=== PATIENT | male | born 1975 | race Caucasian/White ===

== ENCOUNTER 2021-02-25 11:24 | Outpatient (CLI) | payer OTHER, SELFPAY ==
--- NOTE | ~2021-02-25 | XR_ITS ---
XR ankle LT min 3V DATE: 02/25/2021 11:56 INDICATION: Left ankle pain for 6 months. No injury. TECHNIQUE: 4 views COMPARISON: None FINDINGS: No soft tissue swelling is noted. No fracture or dislocation of the ankle or disruption of the ankle mortise, periosteal reaction or bone destruction is detected. IMPRESSION: Negative Reviewed, dictated and finalized at location B. RVISOR RECORDS CHANGE IMPRESSION: Negative
--- NOTE | ~2021-02-25 | XR_ITS ---
XR shoulder RT min 2V DATE: 02/25/2021 11:56 INDICATION: Right shoulder pain for 2 months. No injury. TECHNIQUE: 4 views COMPARISON: None FINDINGS: No fracture or dislocation, periosteal reaction or bone destruction or abnormal soft tissue calcification of the right shoulder. IMPRESSION: Negative Reviewed, dictated and finalized at location B. TICE MANAGERS IMPRESSION: Negative
== END 2021-02-25 11:25 | disposition home or self-care (01) ==
LOC: CHSIMG 11:28
PROVIDERS: PCP Internal Medicine; Visit Provider Internal Medicine
DX: M25.511 Pain in right shoulder (principal); M25.572 Pain in left ankle and joints of left foot
CPT/HCPCS: 73030; 73610

== ENCOUNTER 2024-05-10 13:10 | Emergency (ER) | payer OTHER, SELFPAY ==
--- NOTE | ~2024-05-10 | US_ITS ---
EXAMINATION: US scrotum doppler DATE: 05/10/2024 14:37 INDICATION: Scrotal pain and swelling TECHNIQUE: Testicular sonogram utilizing grayscale and Doppler COMPARISON: None. FINDINGS: The right testis measures 4.1 x 3.5 x 2.7 cm. The left testis measures 4.5 x 3.8 x 2.4 cm. Symmetric normal grayscale appearance to both testes. Asymmetric mild increased vascular flow in the right test is relative to the left on color Doppler. Asymmetric swelling of the right epididymis with more promi nent asymmetrically increased vascular flow on color Doppler consistent with epididymitis. The left e pididymis is normal with normal vascular flow. There is a moderate-sized left hydrocele. There is no varicocele. There is asymmetric swelling at the right hemiscrotum relative to the left. IMPRESSION: 1. Asymmetric hyperemia to the right testis and epididymis consistent with epididymoorchitis. 2. Likely secondary reactive right-sided scrotal edema and moderate-sized right hydrocele. Reviewed, dictated and finalized at location L. ER HUMAN RESOURCES MANAGER IMPRESSION: 1. Asymmetric hyperemia to the right testis and epididymis consistent with epi didymoorchitis. 2. Likely secondary reactive right-sided scrotal edema and moderate-sized right hydrocele.
[2024-05-10 13:46] VITALS: BP 142/118; PULSE 97; RESP 16; TEMP 37.3; O2SAT 99
--- OUTSIDE RECORDS SUMMARY | 2024-05-10 14:27 | XMS_ITS | Clinical Summary ---
Author Organization [facility] Address [address] [place] [address] Care Team Providers Care Scouts Name Role Phone Alexandra Deluna NP Primary Care Provider [phone] Allergies No known active allergies Medications losartan (COZAAR) 50 mg tablet Take 1 tablet (50 mg total) by mouth daily 10/17/2023 Active meloxicam (MOBIC) 15 mg tabletIndication s:Left shoulder pain, unspecified chronicity,Super ior glenoid labrum lesion of left shoulder, initial encounter,Imping ement syndrome of left shoulder Take 1 tablet (15 mg total) by mouth daily 30 tablet 1 10/26/2023 Active Active Problems Problem Noted Date Diagnosed Date Positive colorectal cancer screening using Colog uard test 02/07/2023 Encounter for screening colonoscopy 02/07/2023 Class 1 obesity without seri ous comorbidity with body mass index (BMI) of 34.0 to 34.9 in adult 11/14/2022 Assessment & Plan (11/14/2022 8:53 AM CDT): Chronic problem-new patient Unable to classify stability Encouraged to follow heart healthy diet-low fat, low carb, low chol, low sonja Encouraged to increase activity to 30 min/week, 150 min/week Continue to monitor BMI not at/near goal <30 Fever blister 11/14/2022 Assessment & Plan (11/14/2022 8:58 AM CDT): Chronic problem-stable Ordered acyclovir 400 mg-take 1 tablet five times daily for 10 days at first sign of breakout Will plan to order suppressive therapy dosing if needed for recurrent outbreaks Continue to monitor Encounter for medical examination to establish c are 11/12/2022 Assessment & Plan (11/14/2022 8:58 AM CDT): Recommend flu vaccine every December, tetanus booster every 10 years-next due 2030, recommend covid booster Fasting labs ordered Follow up in 1 year for annual-sooner prn Ordered Cologuard for colon cancer screening Chronic alcohol use 06/01/2021 Assessment & Plan (11/14/2022 8:55 AM CDT): Chronic problem-stable Encouraged to decrease etoh use- recommend 1 to 2 drinks nightly and slowly wean self off etoh-increased risk of health with continued use discussed MARIANA (obstructive sleep apnea) 03/25/2021 Overview (03/25/2021): Added automatically from request for surgery [id number] Assessment & Plan (11/14/2022 8:48 AM CDT): Chronic problem-stable Continue with autopap at current settings Compliant with autopap nighty with symptomatic relief Follow up with sleep medicine as scheduled-Dr. Prado Multiple-type hyperlipidemia 07/21/2013 Overview (06/10/2016): MIXED HYPERLIPIDEMIA Assessment & Plan (11/14/2022 8:49 AM CDT): Chronic problem- no current lab results to review Unable to classify stability due to no lab values Fasting labs ordered- lipids Continue to monitor Recommend healthy diet-low fat, low carb, low chol Tobacco dependence syndrome 07/21/2013 Overview (06/10/2016): TOBACCO USE DISORDER Cobalamin deficiency 07/21/2013 Overview (06/11/2016): Vitamin B12 deficiency Assessment & Plan (11/14/2022 8:52 AM CDT): Chronic problem- no current lab values Unable to classify stability due to no recent lab values Labs ordered- B12, folate Will plan to order B12 and folic acid pending results Encounters Date Type Department Care Team Description 05/10/2024 12:30 PM DEPUTY ATTORNEY GENERAL Office Visit [facility] Medical Group [facility] Care at [address] [address] Belen Vazquez NP Testicular swelling, right (Primary Dx); Testicular pain, right from Last 3 Months Immunizations Immunization Administration Dates Next Due Tdap 02/25/2021,05/11/2011 Surgical History Surgery Date Site/Laterality Comments VASECTOMY 03/07/2009 - 03/06/2010 Vasectomy FRACTURE SURGERY Right hand fracture HERNIA REPAIR no hernia Medical History Medical History Date Comments Sleep apnea Carpal tunnel syndrome H/O Family History Medical History Relation Name Comments Early Father Heart attack Father [place] Hypertension Father Hypertension Mother Hypertension; Relation Name Status Comments Father (Age 53) Mother Alive Social History Tobacco Use Types Packs/Day Years Used Date Smoking Tobacco: Former Cigarettes Q uit: 2019 Smokeless Tobacco: Never Tobacco Cessation:Counseling Given: Not Answered Alcohol Use Standard Drinks/Week Comments Yes 0 (1 standard drink = 0.6 oz pur e alcohol) AUDIT-C Answer Date Recorded Q1: How often do you have a drink containing alc ohol? 2-3 times a week 03/18/2023 Q2: How many drinks containi ng alcohol do you have on a typical day when you are drinking? 1 or 2 03/18/2023 Q3: How often do you have si x or more drinks on one occasion? Never 03/18/2023 PHQ-2 Answer Date Recorded PHQ-2 Total Score (If total score is 3 or more points, staff should administer the PHQ-9) 0 11/12/2022 Personal Safety Answer Date Recorded Have you ever been in or are you currently in a harmful physical or emotional relationship or is someone making you feel afraid or unsafe? Denies 03/21/2023 Sex and Gender Information Value Date Recorded Sex Assigned at Not on file Legal Sex Male 10:05 AM DEPUTY ATTORNEY GENERAL Gender Identity Not on file Sexual Orientation Not on file Obstetrics History Last Filed Vital Signs Vital Sign Reading Time Taken Comments Blood Pressure 170/86 05/10/2024 12:45 PM DEPUTY ATTORNEY GENERAL Pulse 95 05/10/2024 12:45 PM DEPUTY ATTORNEY GENERAL Temperature 37.4 C (99.4 F) 05/10/2024 12:45 PM DEPUTY ATTORNEY GENERAL Respiratory Rate 20 05/10/2024 12:45 PM DEPUTY ATTORNEY GENERAL Oxygen Saturation 99% 05/10/2024 12:45 PM DEPUTY ATTORNEY GENERAL Inhaled Oxygen Concentration - - Weight 112 kg (246 lb 14.4 oz) 05/10/2024 12:45 PM DEPUTY ATTORNEY GENERAL Height 184.2 cm (6' 0.5 ) 10/26/2023 2:23 PM CDT Body Mass Index 33.03 10/26/2023 2:23 PM CDT Plan of Treatment Health Maintenance Due Date Last Done Comments Hepatitis B Screening 1993 Covid-19 Vaccine (3 - 2023-2 5 season) 2023 08/01/2020, 07/11/2020 Influenza Vaccine (#1) 2023 Depression Screening 11/13/2023 11/12/2022 Regular Well Visit/Exam 18-64 11/13/2023, 11/12/2022 DTaP/Tdap/Td Vaccine (3 - Td or Tdap) 02/25/2031 02/25/2021, 05/11/2011 Colon Cancer Screening-Colonoscopy 03/21/2033 03/21/2023 Hepatitis C Screening Completed 11/22/2022 Pneumococcal vaccine <65 Aged Out No longer eligible based on patient's age to complete this topic Procedures Procedure Name Priority Date/Time Associated Diagnosis Comments COLONOSCOPY 03/21/2023 7:33 AM DEPUTY ATTORNEY GENERAL HEPATITIS PANEL, ACUTE Routine 11/22/2022 12:44 PM CDT Cobalamin deficiency Chronic alcohol use Encounter for medical examination to establish care Multiple-type hyperlipidemia from Last 3 Months or Most Recently Relevant to Health Maintenance Results * COLONOSCOPY (03/21/2023 7:33 AM DEPUTY ATTORNEY GENERAL) Anatomical Region Laterality Modality Other Narrative Procedure Note Jose Antonio Mendosa MD - 03/21/2023 7:[address] [facility] Patient Name: Owen Douglas Procedure Date: 03/21/2023 7:33 AM Date of : 1975 Admit Type: Outpatient Age: 47 Gender: Male Attending MD: Jose Antonio Mendosa M.D. Room: [facility] ENDOSCOPY ROOM 2 Note Status: Finalized Patient Profile: Refer to note in patient chart for documentation of history and physical. Procedure: Colonoscopy Indications: This is the patient's first colonoscopy, Positive Cologuard test Referring MD: Charito Mcgarry.NClaudinePClaudine Providers: Jose Antonio Mendosa M.D. Impression: - The entire examined colon is normal. - No specimens collected. Recommendation: - Discharge patient to home. - Resume previous diet. - Continue present medications. - Repeat colonoscopy in 10 years for screening purposes. - Return to primary care physician as previously scheduled. Medicines: Propofol per Anesthesia Complications: No immediate complications. Estimated Blood Loss: Estimated blood loss: none. Procedure: Pre-Anesthesia Assessment: - This assessment was completed [Time ofAssessment] prior to the administration of sedation. The benefits, risks and alternatives of theprocedure and sedation were discussed and informed consentwas obtained. All questions were answered. Please referto the signed informed consent document in the medical record. The bowel preparation used was Miralax and bisacodyl tablets via single dose instruction. The scope was passed under direct vision. TheColonoscope [id number] was introduced through the anus and advanced to the the cecum, identified by appendiceal orifice and ileocecal valve. The colonoscopy was performed without difficulty. The patient tolerated the procedure well. The qualityof the bowel preparation was excellent. The ileocecal valve, appendiceal orifice, and rectum were photographed. Findings: The perianal and digital rectal examinations were normal. The colon (entire examined portion) appeared normal. Electronically signed by Jose Antonio Mendosa M.D. Jose Antonio Mendosa M.D. 03/21/2023 8:35:38 AM Number of Addenda: 0 Note Initiated On: 03/21/2023 7:33 AM Procedure Code(s): --- Professional --- 46646, Colonoscopy, flexible; diagnostic, including collection of specimen(s) by brushing or washing, when performed (separateprocedure) --- Technical --- 71558, Colonoscopy, flexible; diagnostic, including collection of specimen(s) by brushing or washing, when performed (separateprocedure) Diagnosis Code(s): --- Professional --- R19.5, Other fecal abnormalities --- Technical --- R19.5, Other fecal abnormalities CPT copyright 2020 [employer]. All rights reserved. The codes documented in this report are preliminary and upon rehabilitation counselor reviewmay be revised to meet current compliance requirements. Recognized by the [employer] for promoting quality in endoscopy us Jose Antonio Mendosa MD ENDOSCOPY PROCEDURES Final Re sult * Hepatitis panel, acute Blood (11/22/2022 12:44 PM CDT) Hep A IgM Nonreactive Nonreactive Comment: Interpretive Data: If Hep A IgM Ab is reported as Equivocal, a new sample should be drawn in two weeks for testing. Current interpretive data was last revised on 19. Testing performed by: [facility], [address] [place] [address], [place]., [address] Hep B core IgM Nonreactive Nonreactive C [facility] (RICHIE) Comment: Interpretive Data If HepB Core IgM Ab is reported as Equivocal, a new sample should be drawn in two weeks for testing. Current interpretive data was last revised on 19. Testing performed by: [address] [address] Hep C Ab Nonreactive Nonreactive JONATHAN [facility] (RICHIE) Comment: Interpretive Data Nonreactive: Antibodies to HCV not detected. Does NOT exclude the possibility of recent exposure to HCV. Equivocal: Equivocal for HCV antibodies. Supplemental molecular testing will be automatically performed to determine infection status in accordance with current CDC screening recommendations. Reactive: Positive for HCV antibodies. This may represent current or past HCV infection. Supplemental molecular testing will be automatically performed to determine current infection status in accordance with current CDC screening recommendations. Interpretive data was last revised on 2019. Testing performed by: [facility], [address] [place] [address]., [address] HepBsAg Nonreactive Nonreactive JONATHAN [facility] (RICHIE) Comment:Testing performed by : [address] [address] Blood 11/22/2022 12:4 4 PM CDT 11/22/2022 4:50 PM CDT Alexandra Deluna NP LAB MICROBIOLOGY - GENERAL ORD ERABLES Final Result JONATHAN [facility] (RICHIE) 1 [facility] Department [place] [address] from Last 3 Months or Most Recently Relevant to Health Maintenance Insurance [facility] [employer] SIGNATURE Advance Directives For more information, please contact: [phone] * Full Code (Latest Code Status on File) Date Activated Date Inactivated Comments 03/21/2023 7:37 AM 03/21/2023 1:20 PM * Full Code Date Activated Date Inactivated Comments 03/21/2023 7:37 AM 03/21/2023 7:37 AM Care Teams Scouts Relationship Specialty Start Date End Date Alexandra Deluna NP PCP - General Nurse Practitioner 11/12/22
--- OUTSIDE RECORDS SUMMARY | 2024-05-10 14:27 | XMS_ITS | Encounter Summary ---
Author Organization [facility] Healthcare Address [address] [place] [address] Care Team Providers Care Library Media Technician Name Role Phone Alexandra Deluna NP Primary Care Provider [phone] Reason for Visit * Reason Comments Other Swollen testicle. St arted a week ago and pain. IBU not helping. No issues with urination. - Entered by patient Encounter Details Date Type Department Care Team (Late st Contact Info) Description 05/10/2024 12:30 PM GRANULATOR MACHINE OPERATOR Office Visit [facility] Medical Group Convenient Care at [address] [address] Belen Vazquez NP [address] [place] [address] [address] [place] [address] Testicular swelling, right (Primary Dx); Testicular pain, right Social History Tobacco Use Types Packs/Day Years Used Date Smoking Tobacco: Former Cigarettes Q uit: 2019 Smokeless Tobacco: Never Alcohol Use Standard Drinks/Week Comments Yes 0 [...] on file Legal Sex Male 10:05 AM GRANULATOR MACHINE OPERATOR Gender Identity Not on file Sexual Orientation Not on file documented as of this encounter Last Filed Vital Signs Vital Sign Reading Time Taken Comments Blood Pressure 170/86 05/10/2024 12:45 PM GRANULATOR MACHINE OPERATOR Pulse 95 05/10/2024 12:45 PM GRANULATOR MACHINE OPERATOR Temperature 37.4 C (99.4 F) 05/10/2024 12:45 PM GRANULATOR MACHINE OPERATOR Respiratory Rate 20 05/10/2024 12:45 PM GRANULATOR MACHINE OPERATOR Oxygen Saturation 99% 05/10/2024 12:45 PM GRANULATOR MACHINE OPERATOR Inhaled Oxygen Concentration - - Weight 112 kg (246 lb 14.4 oz) 05/10/2024 12:45 PM GRANULATOR MACHINE OPERATOR Height - - Body Mass Index 33.03 10/26/2023 2:23 PM CDT documented in this encounter Plan of Treatment Not on file documented as of this encounter Visit Diagnoses Diagnosis Testicular swelling, right- Primary Edema of male genital organs Testicular pain, right Unspecified disorder of male genital organs documented in this encounter Care Teams Library Media Technician Relationship Specialty Start Date End Date Alexandra Deluna NP PCP - General Nurse Practitioner 11/12/22 documented as of this encounter
--- OUTSIDE RECORDS SUMMARY | 2024-05-10 14:27 | XMS_ITS | Referral Summary ---
Author Organization [facility] Address [address] [place] [address] Care Team Providers Care Phlebotomy Support Tech Name Role Phone Alexandra Deluna NP Primary Care Provider [phone] Encounters Date Type Department Care Team Description 05/10/2024 12:30 PM AGRICULTURE PROFESSOR Office Visit [facility] Medical Group Convenient Care at [address] [address] Belen Vazquez NP Testicular swelling, right (Primary Dx); Testicular pain, right from Last 3 Months Allergies No known active allergies Medications losartan [...] (03/25/2021): Added automatically from request for surgery [id number] Assessment & Plan (11/14/2022 8:48 AM CDT): [...] order B12 and folic acid pending results Immunizations Immunization Administration Dates Next Due Tdap 02/25/2021,05/11/2011 Social History Tobacco Use Types Packs/Day Years [...] on file Legal Sex Male 10:05 AM AGRICULTURE PROFESSOR Gender Identity Not on file Sexual Orientation Not on file Last Filed Vital Signs Vital Sign Reading Time Taken Comments Blood Pressure 170/86 05/10/2024 12:45 PM AGRICULTURE PROFESSOR Pulse 95 05/10/2024 12:45 PM AGRICULTURE PROFESSOR Temperature 37.4 C (99.4 F) 05/10/2024 12:45 PM AGRICULTURE PROFESSOR Respiratory Rate 20 05/10/2024 12:45 PM AGRICULTURE PROFESSOR Oxygen Saturation 99% 05/10/2024 12:45 PM AGRICULTURE PROFESSOR Inhaled Oxygen Concentration - - Weight 112 kg (246 lb 14.4 oz) 05/10/2024 12:45 PM AGRICULTURE PROFESSOR Height 184.2 cm (6' 0.5 ) 10/26/2023 2:23 PM CDT Body Mass Index 33.03 10/26/2023 2:23 PM CDT Plan of Treatment Not on file Procedures Procedure Name Priority Date/Time Associated Diagnosis Comments COLONOSCOPY 03/21/2023 7:33 AM AGRICULTURE PROFESSOR HEPATITIS PANEL, ACUTE Routine 11/22/2022 12:44 PM CDT Cobalamin deficiency Chronic alcohol use Encounter for medical examination to establish care Multiple-type hyperlipidemia from Last 3 Months or Most Recently Relevant to Health Maintenance Results * COLONOSCOPY (03/21/2023 7:33 AM AGRICULTURE PROFESSOR) Anatomical Region Laterality Modality Other Narrative Procedure Note Jose Antonio Mendosa MD - 03/21/2023 7:33 AM CST [facility] Patient Name: Owen Douglas Procedure Date: 03/21/2023 7:33 AM Date of : 1975 Admit Type: Outpatient Age: 47 Gender: Male Attending MD: Jose Antonio Mendosa M.D. Room: [facility] ENDOSCOPY ROOM 2 Note Status: Finalized Patient Profile: Refer to note in patient chart for documentation of history and physical. Procedure: Colonoscopy Indications: This is the patient's first colonoscopy, Positive Cologuard test Referring MD: Nicholas Mcgarry Providers: Jose Antonio Mendosa M.D. Impression: - [...] scope was passed under direct vision. TheColonoscope [id number] was introduced through the anus and advanced [...] 7:33 AM Procedure Code(s): --- Professional --- 89345, Colonoscopy, flexible; diagnostic, including collection of specimen(s) by brushing or washing, when performed (separateprocedure) --- Technical --- 93419, Colonoscopy, flexible; diagnostic, including collection of specimen(s) by brushing or washing, when performed (separateprocedure) Diagnosis Code(s): --- Professional --- R19.5, Other fecal abnormalities --- Technical --- R19.5, Other fecal abnormalities CPT copyright 2020 [employer]. All rights reserved. The codes documented in this report are preliminary and upon wrister reviewmay be revised to meet current compliance requirements. Recognized by the [employer] for promoting quality [...] last revised on 19. Testing performed by: [address] [address] Hep B core IgM Nonreactive Nonreactive C [facility] (RICHIE) Comment: Interpretive Data If HepB Core IgM Ab is reported as Equivocal, a new sample should be drawn in two weeks for testing. Current interpretive data was last revised on 19. Testing performed by: [facility], [address] [place] [address]., [address] Hep C Ab Nonreactive Nonreactive [facility] (RICHIE) Comment: Interpretive Data Nonreactive: Antibodies to [...] last revised on 2019. Testing performed by: [facility], [address] [place] [address]., [address] HepBsAg Nonreactive Nonreactive [facility] (RICHIE) Comment:Testing performed by : [address] [address] Blood 11/22/2022 12:4 4 PM CDT 11/22/2022 4:50 PM CDT Alexandra Deluna NP LAB MICROBIOLOGY - GENERAL ORD ERABLES Final Result [facility] ([place]) 1 [facility] Department [place] [address] from Last 3 Months or Most Recently Relevant to Health Maintenance Insurance SIGNATURE [facility] CMR Advance Directives For more information, please contact: [phone] * Full Code (Latest Code Status on File) Date Activated Date Inactivated Comments 03/21/2023 7:37 AM 03/21/2023 1:20 PM * Full Code Date Activated Date Inactivated Comments 03/21/2023 7:37 AM 03/21/2023 7:37 AM Care Teams Phlebotomy Support Tech Relationship Specialty Start Date End Date Alexandra Deluna NP PCP - General Nurse Practitioner 11/12/22
--- OUTSIDE RECORDS SUMMARY | 2024-05-10 14:27 | XMS_ITS | Clinical Summary ---
Author Organization [facility] Address [address] [place] [address] Phone Care Team Providers Care Hose Inspector And Patcher Name Role Phone Unavailable Primary Care Provider Unavailabl e Social History Tobacco Use Types Packs/Day Years Used Date Smoking Tobacco: Never Assessed Sex and Gender Information Value Date Recorded Sex Assigned at Not on file Legal Sex Male 12:07 AM CDT Gender Identity Not on file Sexual Orientation Not on file Plan of Treatment Health Maintenance Due Date Last Done Comments Hepatitis C Virus (HCV) Screening 1975 Hepatitis B Immunization (1 of 3 - 19+ 3-dose series) 1993 Colonoscopy 09/24/2019 Colorectal Cancer Screening 09/24/2019 Influenza Immunization (#1) 2023 SARS-COV-2 Immunization ( season) 2023 08/01/2020, 07/11/2020 Respiratory Syncytial Virus (RSV) Immunization (Adult) (1 - 1-dose 75+ series) 2049 DTaP/Tdap/Td Immunization Discontinued 02/25/2021 TdaP Immunization Completed 02/25/2021 Meningococcal Immunization (ACWY) Aged Out No longer eligible based on patient's age to complete this topic Pneumococcal Immunization Combined Aged Out No longer eligible based on patient's age to complete this topic Rotavirus Immunization Aged Out No lo nger eligible based on patient's age to complete this topic Insurance [facility]
[2024-05-10 15:12] LABS: Add Urine Microscopic? NO; Appearance Urine Clear (Clear); Bilirubin Urine Negative (Negative); Blood Urine Negative (Negative); Color Urine Yellow (Yellow); Glucose Urine UA Negative (Negative); Ketones Urine Negative (Negative); Leukocyte Esterase Ur Negative LEU/UL (Negative); Nitrate Urine Negative (Negative); Protein Urine Negative (Negative); Specific Grav Ur 1.019 (1.001-1.035)
[2024-05-10 17:00] VITALS: BP 132/80; PULSE 74; RESP 16; TEMP 36.6; O2SAT 100
--- NOTE | 2024-05-10 17:07 | PC.NURSE ---
pt in room angry because he has not been evaluated by ERP. No ERP signed up for pt currently and he is wanting to know when provider to will see informed him I do not have that information and charge notified
--- NOTE | 2024-05-10 17:45 | ED_ITS ---
HPI - General Adult General Chief complaint: Urogenital-Male Stated complaint: swollen testical/pain Time Seen by Provider: 05/10/24 17:10 History of Present Illness HPI narrative: 48-year-old male presents to the emergency department evaluation for right-sided testicular pain. Patient reports he started having some right testicular swelling proximal a week ago but starts but developing some discomfort yesterday. Patient denies any concern for high-risk sexual behavior or STIs. Patient does have a prior history of vasectomy Related Data Allergies Allergy/AdvReac Type Severity Reaction Status Date / Time No Known Allergies Allergy Unverified 11/20/14 12:51 Review of Systems Review of Systems: All systems reviewed & are unremarkable except as noted in HPI and below Exam Narrative: APPEARANCE: Well appearing, no pain, no distress, well-nourished. HEAD: normocephalic, atraumatic. EYES: PERRLA/EOMI, conjunctivae clear. NOSE: Normal no drainage EARS:TMS clear with good light reflex. THROAT: Pharynx clear, no exudate. NECK: Supple. No adenopathy, no masses. RESPIRATORY: Airway patent, respirations nonlabored. Clear to auscultation bilaterally, no rales, rhonchi, wheezing. CARDIOVASCULAR: Regular rate and rhythm without murmurs rubs or gallops. ABDOMINAL: Soft, nontender, nondistended, normal bowel sounds MUSCULOSKELETAL: Moves all extremities. Strength/ROM intact, No edema, No calf tenderness. NEURO: Alert. Cranial nerves II through XII intact. Good gait. Good coordination SKIN: Warm, dry. Normal Color Normal exam: Right testicular swelling no evidence of cellulitis Course Vital Signs Vital signs: Vital Signs Temperature 99.1 F 05/10/24 13:46 Pulse Rate 97 05/10/24 13:46 Respiratory Rate 16 05/10/24 13:46 Blood Pressure 142/118 H 05/10/24 13:46 Pulse Oximetry 99 05/10/24 13:46 Oxygen Delivery Room Air 05/10/24 13:46 Temperature 97.9 F 05/10/24 18:30 Pulse Rate 72 05/10/24 18:30 Respiratory Rate 16 05/10/24 18:30 Blood Pressure 126/74 05/10/24 18:30 Pulse Oximetry 100 05/10/24 18:30 Oxygen Delivery Room Air 05/10/24 13:46 Medical Decision Making MDM Narrative Medical decision making narrative: 48-year-old male present to emergency department for evaluation for right testicular swelling. UA was negative for infection an ultrasound was negative for torsion but does show epididymal orchitis. Patient was started on IM Rocephin and Levaquin emergency department. Patient will be provided additional medication for pain control for home. Differential Diagnosis Differential Diagnosis: Urinary tract infection, chlamydia, gonorrhea, torsion, epididymitis, epididymo- orchitis Vital Signs Vital Signs: Vital Signs Temperature 99.1 F 05/10/24 13:46 Pulse Rate 97 05/10/24 13:46 Respiratory Rate 16 05/10/24 13:46 Blood Pressure 142/118 H 05/10/24 13:46 Pulse Oximetry 99 05/10/24 13:46 Oxygen Delivery Room Air 05/10/24 13:46 Temperature 97.9 F 05/10/24 18:30 Pulse Rate 72 05/10/24 18:30 Respiratory Rate 16 05/10/24 18:30 Blood Pressure 126/74 05/10/24 18:30 Pulse Oximetry 100 05/10/24 18:30 Oxygen Delivery Room Air 05/10/24 13:46 Lab Data Lab results reviewed: Yes I reviewed the patient's lab results. Labs: Lab Results 05/10/24 Range/Units 14:58 Urine Color Yellow (Yellow) Urine Appearance Clear (Clear) Urine pH 6.0 (5.0-9.0) Ur Specific [place] 1.019 (1.001-1.035) Urine Protein Negative (Negative) mg/dL Urine Glucose (UA) Negative (Negative) mg/dL Urine Ketones Negative (Negative) mg/dL Ur Blood (Man) Negative (Negative) Urine Nitrate Negative (Negative) Urine Bilirubin Negative (Negative) Urine Urobilinogen 1.0 (<2.0) mg/dL Leukocyte Esterase Rfl Negative (Negative) TRIP/UL Imaging Data Radiologist's impression: Impressions Scrotum Ultrasound 05/10/24 14:43 IMPRESSION: 1. Asymmetric hyperemia to the right testis and epididymis consistent with epididymoorchitis. 2. Likely secondary reactive right-sided scrotal edema and moderate-sized right hydrocele. Discharge Plan Discharge Clinical Impression: Acute epididymo-orchitis Patient Disposition: Home, Self-Care Condition: Stable Instructions: Antibiotic Form, Epididymo-Orchitis (ED) Additional Instructions: Ibuprofen for pain control. [place] as needed for additional pain control. Antibiotic as directed until completed. Have close follow-up with Urology. If you have any worsening symptoms then please call or return to the emergency department. Patient Language: Australian Prescriptions: New levofloxacin 500 mg tablet 500 mg PO DAILY 10 Days Qty: 10 0RF hydrocodone-acetaminophen 5-325 mg tablet 1 tablet PO Q12H PRN (Reason: pain) 5 Days Qty: 10 0RF Follow-up/Referrals: Sudhir Ortiz MD [Physician] - Young Hernandez MD [Physician] -
--- OUTSIDE RECORDS SUMMARY | 2024-05-10 18:02 | XMS_ITS | Referral Summary ---
Author Organization [facility] Address [address] [place] [address] Care Team Providers Care Assistant Director Of Public Works Name Role Phone Alexandra Deluna NP Primary Care Provider [phone] Encounters Date Type Department Care Team Description 05/10/2024 12:30 PM WARDROBE ASSISTANT Office Visit [facility]ient Care at [address] [address] Belen Vazquez NP Testicular swelling, [...] (03/25/2021): Added automatically from request for surgery [id number] Assessment & Plan (11/14/2022 8:48 AM CDT): [...] on file Legal Sex Male 10:05 AM WARDROBE ASSISTANT Gender Identity Not on file Sexual Orientation Not on file Last Filed Vital Signs Vital Sign Reading Time Taken Comments Blood Pressure 170/86 05/10/2024 12:45 PM WARDROBE ASSISTANT Pulse 95 05/10/2024 12:45 PM WARDROBE ASSISTANT Temperature 37.4 C (99.4 F) 05/10/2024 12:45 PM WARDROBE ASSISTANT Respiratory Rate 20 05/10/2024 12:45 PM WARDROBE ASSISTANT Oxygen Saturation 99% 05/10/2024 12:45 PM WARDROBE ASSISTANT Inhaled Oxygen Concentration - - Weight 112 kg (246 lb 14.4 oz) 05/10/2024 12:45 PM WARDROBE ASSISTANT Height 184.2 cm (6' 0.5 ) 10/26/2023 2:23 PM CDT Body Mass Index 33.03 10/26/2023 2:23 PM CDT Plan of Treatment Not on file Procedures Procedure Name Priority Date/Time Associated Diagnosis Comments COLONOSCOPY 03/21/2023 7:33 AM WARDROBE ASSISTANT HEPATITIS PANEL, ACUTE Routine 11/22/2022 12:44 PM CDT Cobalamin deficiency Chronic alcohol use Encounter for medical examination to establish care Multiple-type hyperlipidemia from Last 3 Months or Most Recently Relevant to Health Maintenance Results * COLONOSCOPY (03/21/2023 7:33 AM WARDROBE ASSISTANT) Anatomical Region Laterality Modality Other Narrative Procedure Note Jose Antonio Mendosa MD - 03/21/2023 7:33 AM CST [facility] Patient Name: Owen Douglas Procedure Date: 03/21/2023 7:33 AM Date of : 1975 Admit Type: Outpatient Age: 47 Gender: Male Attending MD: Jose Antonio Mendosa M.D. Room: [facility] ENDOSCOPY ROOM 2 Note Status: Finalized Patient [...] scope was passed under direct vision. TheColonoscope [id number] was introduced through the anus and advanced [...] 7:33 AM Procedure Code(s): --- Professional --- 88563, Colonoscopy, flexible; diagnostic, including collection of specimen(s) by brushing or washing, when performed (separateprocedure) --- Technical --- 71707, Colonoscopy, flexible; diagnostic, including collection of specimen(s) by brushing or washing, when performed (separateprocedure) Diagnosis Code(s): --- Professional --- R19.5, Other fecal abnormalities --- Technical --- R19.5, Other fecal abnormalities CPT copyright 2020 [employer]. All rights reserved. The codes documented in this report are preliminary and upon medical coder reviewmay be revised to meet current compliance requirements. Recognized by the [employer] for promoting quality [...] last revised on 19. Testing performed by: [address] [address] Hep B core IgM Nonreactive Nonreactive [facility] (RICHIE) Comment: Interpretive Data If HepB Core IgM Ab is reported as Equivocal, a new sample should be drawn in two weeks for testing. Current interpretive data was last revised on 19. Testing performed by: [facility], [address] [place] [address]., [address] Hep C Ab Nonreactive Nonreactive [facility] [...] last revised on 2019. Testing performed by: [facility], [address] [place] [address]., [address] HepBsAg Nonreactive Nonreactive [facility] (RICHIE) Comment:Testing performed by : [address] [address] Blood 11/22/2022 12:4 4 PM CDT 11/22/2022 4:50 PM CDT Alexandra Deluna NP LAB MICROBIOLOGY - GENERAL ORD ERABLES Final Result [facility] ([place]) [facility] Department [place] [address] from Last 3 Months or Most Recently Relevant to Health Maintenance Insurance [employer] [facility] CMR Advance Directives For more information, please contact: [phone] * Full Code (Latest Code Status on File) Date Activated Date Inactivated Comments 03/21/2023 7:37 AM 03/21/2023 1:20 PM * Full Code Date Activated Date Inactivated Comments 03/21/2023 7:37 AM 03/21/2023 7:37 AM Care Teams Assistant Director Of Public Works Relationship Specialty Start Date End Date Alexandra Deluna NP PCP - General Nurse Practitioner 11/12/22
--- OUTSIDE RECORDS SUMMARY | 2024-05-10 18:02 | XMS_ITS | Clinical Summary ---
Author Organization [facility] Address [address] [place] [address] Phone Care Team Providers Care Branch Store Manager Name Role Phone Unavailable Primary Care Provider [...] patient's age to complete this topic Insurance [employer]
--- OUTSIDE RECORDS SUMMARY | 2024-05-10 18:02 | XMS_ITS | Clinical Summary ---
Author Organization [facility] Address [address] [place] [address] Care Team Providers Care Four H Agent Name Role Phone Alexandra Deluna NP Primary Care Provider [phone] Allergies No known active allergies Medications losartan [...] (03/25/2021): Added automatically from request for surgery [id number] Assessment & Plan (11/14/2022 8:48 AM CDT): [...] Department Care Team Description 05/10/2024 12:30 PM STAVE HEWER Office Visit [facility] Care at [address] [address] Belen Vazquez NP Testicular swelling, [...] Name Comments Early Father Heart attack Father [place] Hypertension Father Hypertension Mother Hypertension; Relation Name [...] on file Legal Sex Male 10:05 AM STAVE HEWER Gender Identity Not on file Sexual Orientation Not on file Obstetrics History Last Filed Vital Signs Vital Sign Reading Time Taken Comments Blood Pressure 170/86 05/10/2024 12:45 PM STAVE HEWER Pulse 95 05/10/2024 12:45 PM STAVE HEWER Temperature 37.4 C (99.4 F) 05/10/2024 12:45 PM STAVE HEWER Respiratory Rate 20 05/10/2024 12:45 PM STAVE HEWER Oxygen Saturation 99% 05/10/2024 12:45 PM STAVE HEWER Inhaled Oxygen Concentration - - Weight 112 kg (246 lb 14.4 oz) 05/10/2024 12:45 PM STAVE HEWER Height 184.2 cm (6' 0.5 ) 10/26/2023 [...] Associated Diagnosis Comments COLONOSCOPY 03/21/2023 7:33 AM STAVE HEWER HEPATITIS PANEL, ACUTE Routine 11/22/2022 12:44 PM CDT Cobalamin deficiency Chronic alcohol use Encounter for medical examination to establish care Multiple-type hyperlipidemia from Last 3 Months or Most Recently Relevant to Health Maintenance Results * COLONOSCOPY (03/21/2023 7:33 AM STAVE HEWER) Anatomical Region Laterality Modality Other Narrative Procedure Note Jose Antonio Mendosa MD - 03/21/2023 7:33 AM CST [facility] Patient Name: Owen Douglas Procedure Date: 03/21/2023 7:33 AM Date of : 1975 Admit Type: Outpatient Age: 47 Gender: Male Attending MD: Jose Antonio Mendosa M.D. Room: [facility] ENDOSCOPY ROOM 2 Note Status: Finalized Patient [...] scope was passed under direct vision. TheColonoscope [id number] was introduced through the anus and advanced [...] 7:33 AM Procedure Code(s): --- Professional --- 61779, Colonoscopy, flexible; diagnostic, including collection of specimen(s) by brushing or washing, when performed (separateprocedure) --- Technical --- 48889, Colonoscopy, flexible; diagnostic, including collection of specimen(s) by brushing or washing, when performed (separateprocedure) Diagnosis Code(s): --- Professional --- R19.5, Other fecal abnormalities --- Technical --- R19.5, Other fecal abnormalities CPT copyright 2020 [employer]. All rights reserved. The codes documented in this report are preliminary and upon merchandise flow team leader reviewmay be revised to meet current compliance requirements. Recognized by the [employer] for promoting quality [...] last revised on 19. Testing performed by: [facility], [address] [place] [address], [place]., [address] Hep B core IgM Nonreactive Nonreactive C [facility] (RICHIE) Comment: Interpretive Data If HepB Core IgM Ab is reported as Equivocal, a new sample should be drawn in two weeks for testing. Current interpretive data was last revised on 19. Testing performed by: [address] [address] Hep C Ab Nonreactive Nonreactive JONATHAN [facility]LMSTE[facility] [...] last revised on 2019. Testing performed by: [facility], [address] [place] [address]., [address] HepBsAg Nonreactive Nonreactive [facility] (RICHIE) Comment:Testing performed by : [address] [address] Blood 11/22/2022 12:4 4 PM CDT 11/22/2022 4:50 PM CDT Alexandra Deluna NP LAB MICROBIOLOGY - GENERAL ORD ERABLES Final Result [facility] (RICHIE) 1 [facility] Department [place] [address] from Last 3 Months or Most Recently Relevant to Health Maintenance Insurance [facility] [employer] Advance Directives For more information, please contact: [phone] * Full Code (Latest Code Status on File) Date Activated Date Inactivated Comments 03/21/2023 7:37 AM 03/21/2023 1:20 PM * Full Code Date Activated Date Inactivated Comments 03/21/2023 7:37 AM 03/21/2023 7:37 AM Care Teams Four H Agent Relationship Specialty Start Date End Date Alexandra Deluna NP PCP - General Nurse Practitioner 11/12/22
--- OUTSIDE RECORDS SUMMARY | 2024-05-10 18:02 | XMS_ITS | Encounter Summary ---
Author Organization [facility] Address [address] [place] [address] Care Team Providers Care Biological Chemist Name Role Phone Alexandra Deluna NP Primary Care Provider [phone] Reason for Visit * Reason Comments Other Swollen testicle. St arted a week ago and pain. IBU not helping. No issues with urination. - Entered by patient Encounter Details Date Type Department Care Team (Late st Contact Info) Description 05/10/2024 12:30 PM ENGINEERING AIDE Office Visit [facility]ient Care at [address] [address] Belen Vazquez NP [address] [place] [address] [address] [place] [address] Testicular swelling, right (Primary Dx); [...] on file Legal Sex Male 10:05 AM ENGINEERING AIDE Gender Identity Not on file Sexual Orientation Not on file documented as of this encounter Last Filed Vital Signs Vital Sign Reading Time Taken Comments Blood Pressure 170/86 05/10/2024 12:45 PM ENGINEERING AIDE Pulse 95 05/10/2024 12:45 PM ENGINEERING AIDE Temperature 37.4 C (99.4 F) 05/10/2024 12:45 PM ENGINEERING AIDE Respiratory Rate 20 05/10/2024 12:45 PM ENGINEERING AIDE Oxygen Saturation 99% 05/10/2024 12:45 PM ENGINEERING AIDE Inhaled Oxygen Concentration - - Weight 112 kg (246 lb 14.4 oz) 05/10/2024 12:45 PM ENGINEERING AIDE Height - - Body Mass Index 33.03 10/26/2023 2:23 PM CDT documented in this encounter Plan of Treatment Not on file documented as of this encounter Visit Diagnoses Diagnosis Testicular swelling, right- Primary Edema of male genital organs Testicular pain, right Unspecified disorder of male genital organs documented in this encounter Care Teams Biological Chemist Relationship Specialty Start Date End Date Alexandra Deluna NP PCP - General Nurse Practitioner 11/12/22 documented as of this encounter
[2024-05-10] MEDS: cefTRIAXone 1 GM VIAL 0.5 GM IM (18:10)
[2024-05-10] MEDS: levoFLOXacin 500 MG TABLET PO (18:10)
[2024-05-10] MEDS: LIDOCAINE 1% LOCAL INJ 10 ML VIAL (18:12)
[2024-05-10 18:30] VITALS: BP 126/74; PULSE 72; RESP 16; TEMP 36.6; O2SAT 100
== END 2024-05-10 18:32 | disposition home or self-care (01) ==
LOC: ANHED 18:00
PROVIDERS: Emergency Provider Emergency Medicine; PCP Nurse Practitioner Adult Health
DX: N45.3 Epididymo-orchitis (principal)
CPT/HCPCS: 76870; 81003; 93976; 96372; 99284; A9270; J0696; J2003